=== PATIENT | female | born 1990 | race Two or more races ===

== ENCOUNTER 2023-11-22 08:19 | Day surgery (SDC) | payer MEDICAID ==
[~2023-11-22] VITALS: Ht 167.6 cm; Wt 72.5 kg
[~2023-11-22 08:19] MED LIST: MAGN400T40 PO; METO25TA5 PO
[2023-11-22] MEDS ORDERED: MULT-1018 PO (08:50)
[2023-11-22] MEDS ORDERED: LIDOCAINE VISCOUS 2% 15ML UD ONE (10:17)
[2023-11-22] MEDS ORDERED: fentaNYL CITRATE 100 MCG/2 ML VL ONE (10:18)
[2023-11-22] MEDS ORDERED: MIDAZOLAM HCL 2MG/2ML 2ml VIAL (1mg/ml) ONE (10:18)
[2023-11-22] MEDS ORDERED: MIDAZOLAM HCL 2MG/2ML 2ml VIAL (1mg/ml) IV ONE (10:30)
[2023-11-22] MEDS ORDERED: fentaNYL CITRATE 100 MCG/2 ML VL IV ONE (10:30)
[2023-11-22] MEDS ORDERED: LIDOCAINE VISCOUS 2% 15ML UD MT ONE (10:30)
== END 2023-11-22 11:57 | disposition home or self-care (01) ==
LOC: CATH 08:19
PROVIDERS: ATTEND Internal Medicine Cardiovascular Disease
DX: I08.1 Rheumatic disorders of both mitral and tricuspid valves (principal); Z88.0 Allergy status to penicillin
CPT/HCPCS: 93312; J2250; J3010; 99152